=== PATIENT | female | born 1980 | race Caucasian/White ===

== ENCOUNTER 2017-11-17 18:51 | Emergency (ER) | payer OTHER ==
[~2017-11-17] VITALS: Ht 157.5 cm; Wt 83.9 kg
== END 2017-11-17 23:06 | disposition home or self-care (01) ==
LOC: ER 18:51
DX: Z34.03 Encounter for supervision of normal first pregnancy, third trimester (principal); J06.9 Acute upper respiratory infection, unspecified; J11.1 Influenza due to unidentified influenza virus with other respiratory manifestations

== ENCOUNTER 2018-01-11 14:30 | Inpatient (IN) | payer OTHER ==
[~2018-01-11] VITALS: Ht 157.5 cm; Wt 86.2 kg
[2018-02-01] MEDS ORDERED: PRENATAL 19 TA1 EAC1 PO (23:02)
== END 2018-02-05 14:06 | DRG 766 ==
LOC: OB/GYN 02-01 14:30 → SURG-SUITE 02-01 22:21 → LDR 02-01 22:21 → O/R 02-02 18:00 → SURG-SUITE 02-02 19:15
PROVIDERS: Specialist
PROC: 3E0P7VZ Introduction of Hormone into Female Reproductive, Via Natural or Artificial Opening (ICD-10-PCS; 2018-02-02)
PROC: 3E033VJ Introduction of Other Hormone into Peripheral Vein, Percutaneous Approach (ICD-10-PCS; 2018-02-02)
PROC: 4A033R1 Measurement of Arterial Saturation, Peripheral, Percutaneous Approach (ICD-10-PCS; 2018-02-02)
PROC: 4A1HXCZ Monitoring of Products of Conception, Cardiac Rate, External Approach (ICD-10-PCS; 2018-02-02)
PROC: 10D00Z1 Extraction of Products of Conception, Low, Open Approach (ICD-10-PCS; principal; 2018-02-02 17:00)
DX: O61.0 Failed medical induction of labor (principal); Z3A.40 40 weeks gestation of pregnancy; Z37.0 Single live birth

== ENCOUNTER 2018-01-30 10:16 | Outpatient (CLI) | payer OTHER ==
[2018-02-01] MEDS ORDERED: PRENATAL 19 TA1 EAC1 PO (23:02)
== END 2018-01-31 14:55 | disposition home or self-care (01) ==
LOC: OBS/DEL 10:16
DX: O47.1 False labor at or after 37 completed weeks of gestation (principal); Z34.03 Encounter for supervision of normal first pregnancy, third trimester